=== PATIENT | male | born 1955 | race Caucasian/White ===

== ENCOUNTER → 2017-03-15 | Outpatient (CLI) | payer BC ==
[2017-03-15 18:10] LABS: Blood Urea Nitrogen 23 mg/dL (9-20)
--- NOTE | 2017-03-15 21:18 | CT ---
EXAMINATION TYPE: CT abdomen pelvis w con DATE OF EXAM: 03/15/2017 COMPARISON: NONE HISTORY: Left sided abdominal pain x 4-6 months. History of left renal cyst and aspiration. CT DLP: 1349 mGycm CONTRAST: CT scan of the abdomen and pelvis is performed with Oral Contrast and with IV Contrast, patient injec oscar with 100 mL of Omnipaque 300. FINDINGS: LUNG BASES-: No visible nodule. No infiltrate. LIVER/GB: No calcified gallstones. No space occupying hepatic lesion. Biliary tree is of normal ca liber. PANCREAS: No inflammation. No distinct mass. SPLEEN: No splenic enlargement. No lesion seen. ADRENALS: No nodule. No thickening. KIDNEYS/BLADDER: No hydronephrosis. No nephrolithiasis. Left renal cystic lesion measures 2.4 cm a nd demonstrates minimal wall thickening. Apparently this cyst has been aspirated previously. No addit ional renal lesions are detected. Urinary bladder grossly unremarkable. BOWEL: Normal appendix. Normal bowel caliber. No inflammation. Sigmoid diverticulosis without diver ticulitis. GENITAL ORGANS: No gross abnormality. LYMPH NODES: No greater than 1cm abdominal or pelvic lymph nodes are appreciated. AORTA: No significant abnormality. OSSEOUS STRUCTURES: No significant abnormality is seen. OTHER: No significant additional abnormality is seen. IMPRESSION: 1. Left renal cystic lesion measures 2.4 cm and demonstrates minimal wall thickening. Apparently this cyst has been aspirated previously.
== END | disposition home or self-care (01) ==
LOC: RADCTMAIN 17:23
PROVIDERS: ATTEND Urology
DX: N28.1 Cyst of kidney, acquired (principal)
CPT/HCPCS: 82565; 84520; 74177; 36415; Q9967